=== PATIENT | male | born 1990 | race Caucasian/White ===

== ENCOUNTER 2018-05-28 19:26 | Emergency (ER) | payer OTHER ==
[2018-05-28] MEDS ORDERED: LORAZEPAM 1 MG PREPACK#4 BTL TAKEHOME ONE (20:32)
--- NOTE | 2018-05-28 20:33 | EDPHY ---
H & P Stated Complaint: CP, palpatiations, nausea, mild SOB started after working out Time Seen by Provider: 05/28/18 19:36 HPI/ROS: CHIEF COMPLAINT: Anxiety, palpitations HISTORY OF PRESENT ILLNESS: 27-year-old male with anxiety presents with anxiety and palpitations. After doing a strenuous workout today, he developed significant anxiety, associated with palpitations and shortness of breath, followed by chest tightness. Similar to prior episodes of panic attacks. He was unable to get the anxiety under control, which prompted his visit. Initially on ED arrival his anxiety was severe. Currently anxiety is mild. No prior medications for anxiety. Exercises regularly; no exertional c/p or SOB. Drinks espresso daily, no other stimulant use. Negative cardiac risk factors: nonsmoker, no DM/HTN/hyperlipidemia/FH REVIEW OF SYSTEMS: complete 10 point ROS reviewed and is negative except for the noted elements in the HPI - Personal History Current Tetanus/Diphtheria Vaccine: Yes Current Tetanus Diphtheria and Acellular Pertussis (TDAP): Yes - Medical/Surgical History Hx Asthma: No Hx Chronic Respiratory Disease: No Hx Diabetes: No Hx Cardiac Disease: No Hx Renal Disease: No Hx Cirrhosis: No Hx Alcoholism: No Hx HIV/AIDS: No Hx Splenectomy or Spleen Trauma: No Other PMH: anxiety - Social History Smoking Status: Former smoker Alcohol Use: Sober Drug Use: None - Physical Exam Exam: General Appearance: Alert, pleasant Eyes: Pupils equal and round, no conjunctival pallor or injection ENT, Mouth: Mucous membranes moist Neck: Normal inspection Respiratory: Lungs are clear to auscultation Cardiovascular: Regular rate and rhythm, no murmur Gastrointestinal: Abdomen is soft and nontender Neurological: A&O, nonfocal, normal gait Skin: Warm and dry, no rash Extremities: Nontender, no pedal edema Psychiatric: Mood and affect normal, does not appear anxious Constitutional: Initial Vital Signs Temperature (C) 37.1 C 05/28/18 19:27 Heart Rate 108 H 05/28/18 19:27 Respiratory Rate 20 05/28/18 19:27 Blood Pressure 172/96 H 05/28/18 19:27 O2 Sat (%) 98 05/28/18 19:27 O2 Delivery Mode Room Air Allergies/Adverse Reactions: No Known Allergies Allergy (Unverified 05/28/18 19:27) Home Medications: Medication Instructions Recorded NK [No Known Home Meds] 05/28/18 Medical Decision Making - Diagnostics EKG Interpretation: EKG interpreted by me reveals a normal sinus rhythm, rate 96, right bundle branch block. Interpretation: Abnormal EKG Imaging Results: CXR: NAD Imaging: I viewed and interpreted images myself ED Course/Re-evaluation: This pt presents after a prolonged episode of anxiety, now almost completely resolved. Associated with c/p. EKG reveals no evidence of ischemia or dysrhythmia. CXR unremarkable. No evidence of ACS or serious cardiopulm etiology. d/w pt at length, options for anxiety control. Will d/c caffeine, f/ u with therapist and PCP. Ativan prepack given. Differential Diagnosis: includes though not limited to dysrhythmia, ACS, hypoglycemia, electrolyte abnormality - Data Points Medications Given: Discontinued Medications Lorazepam (Ativan 1 Mg Prepack#4) 1 btl TAKEHOME EDNOW ONE Stop: 05/28/18 20:33 Last Admin: 05/28/18 21:12 Dose: 1 btl Point of Care Test Results: Chemistry 05/28/18 20:45 POC Sodium 141 mEq/L mEq/L (135-145) POC Potassium 3.7 mEq/L mEq/L (3.3-5.0) POC Chloride 104 mEq/L mEq/L (97-110) POC Total CO2 24 mEq/L mEq/L (22-31) POC BUN 14 mg/dL mg/dL (7-23) POC Creatinine 1.1 mg/dL mg/dL (0.7-1.3) POC Glucose 117 mg/dL H mg/dL (70-100) ISTAT H&H 05/28/18 20:45 POC Hgb 16.7 gm/dL gm/dL (13.7-17.5) POC Hct 49 % % (40-51) Departure - Departure Disposition: Home, Routine, Self-Care Clinical Impression: Anxiety Condition: Good Instructions: Lorazepam (By mouth), Anxiety (ED) Additional Instructions: Your EKG and chest x-ray are normal today. Take Ativan 1 tablet orally every 12 hr as needed for anxiety. Referrals: Pablito Anton DO [Primary Care Provider] - As per Instructions
[2018-05-28 21:17] VITALS: BP 146/74
== END 2018-05-28 21:17 | disposition home or self-care (01) ==
DX: F41.9 Anxiety disorder, unspecified (principal)
CPT/HCPCS: 82435-PO; 82565-PO; 82947-PO; 84132-PO; 84295-PO; 84520-PO; 85014-ER